=== PATIENT | male | born 1945 | race Caucasian/White ===

== ENCOUNTER 2017-10-20 12:17 | Inpatient (IN) | payer OTHER, MEDICARE, MEDICAID ==
[~2017-10-20] VITALS: Ht 175.3 cm; Wt 49.0 kg
[2017-10-20] VITALS (11 sets, daily range): BP systolic 116–165; BP diastolic 62–90; PULSE 85–106; RESP 16–25; TEMP 99.2–101.2; O2SAT 94–97
[2017-10-20] MEDS ORDERED: THIAMINE INJ 100 MG in SODIUM CHLORIDE 0.9% INJ 100 ML IV ONE (12:30)
[2017-10-20 13:24] LABS: HEMATOCRIT 38.1 % (39.0-51.0); HEMOGLOBIN 13.2 GM/DL (13.0-17.0); MEAN CELL VOLUME 105.2 FL (80.0-100.0); MEAN CORPUSCULAR HEMOGLOBIN 36.4 PG (27.0-34.0); MEAN CORPUSCULAR HGB CONC 34.6 % (32.0-36.0); MEAN PLATELET VOLUME 6.9 FL (7.0-11.0); PLATELET COUNT 253 TH/MM3 (150-450); RED BLOOD COUNT 3.62 MIL/MM3 (4.50-5.90); RED CELL DISTRIBUTION WIDTH 16.1 % (11.6-17.2); WHITE BLOOD COUNT 6.7 TH/MM3 (4.0-11.0)
[2017-10-20 13:29] LABS: CHLORIDE 98 MEQ/L (98-107); SODIUM (NA) 137 MEQ/L (136-145)
[2017-10-20 13:33] LABS: ALBUMIN 3.5 GM/DL (3.4-5.0); BICARBONATE 26.4 MEQ/L (21.0-32.0); BLOOD UREA NITROGEN 10 MG/DL (7-18); GLUCOSE,RANDOM 110 MG/DL (74-106)
[2017-10-20 13:36] LABS: ALT (GPT) 31 U/L (12-78); AST (GOT) 85 U/L (15-37); CREATININE 0.74 MG/DL (0.60-1.30); GLOMERULAR FILTRATION RATE 103 ML/MIN (>89)
[2017-10-20 13:37] LABS: TOTAL BILIRUBIN ADULT 1.1 MG/DL (0.2-1.0); TOTAL PROTEIN 7.4 GM/DL (6.4-8.2)
[2017-10-20 13:39] LABS: ALKALINE PHOSPHATASE 106 U/L (45-117)
[2017-10-20 13:40] LABS: BANDS 11 % (0-6); LYMPHOCYTES 9 % (9-44); MONOCYTES 8 % (0-8); NEUTROPHIL # MANUAL DIFF 5.6 TH/MM3 (1.8-7.7); POLYS (SEG NEUTROPHILS) 72 % (16-70)
--- NOTE | 2017-10-20 13:45 | RADRPT ---
EXAM DATE: 10/20/2017 1:42 PM EDT AGE/SEX: 72 years / Male INDICATIONS: Fever. CLINICAL DATA: This is the patient's initial encounter. Patient reports that signs and symptoms have been present for 1 day and indicates a pain score of 0/10. MEDICAL/SURGICAL HISTORY: None. None. COMPARISON: No prior [place] exams available for comparison. FINDINGS: There is minimal streaky parenchymal opacity at the left lung base. Right lung is grossly clear. Card iac contours are satisfactory accounting for rotation. No significant effusion is suspected. CONCLUSION: Minimal left base parenchymal opacity. Electronically signed by: Alex Varghese MD 10/20/2017 1:43 PM EDT
--- NOTE | 2017-10-20 13:55 | PD ---
HPI Chief Complaint: GI Complaint Time Seen by Provider: 12:27 Travel History International Travel<30 days: No Contact w/Intl Traveler<30days: No Traveled to known affect area: No History of Present Illness HPI This 72-year-old male is brought by paramedics. This gentleman apparently has a history of alcohol abuse. Family told the paramedics that he was not acting himself. He apparently has a history of dementia though he seems more confused than usual. He has a history of seizures. In the past he has been on Dilantin. At this time we are unable to ascertain whether he has been taking any medication. We are not aware of any recent seizure. The patient is not able to provide any useful information. 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 PFSH Past Medical History Diminished Hearing: No Tetanus Vaccination: Unknown ?: Not Social History Alcohol Use: Yes Tobacco Use: No (pt states no) Substance Use: No Allergies-Medications (Allergen,Severity, Reaction): Coded Allergies: No Allergy Information Available (Unverified , 10/20/17) Reported Meds & Prescriptions Reported Meds & Active Scripts Active Active Prescriptions or Reported Medications Unobtainable Review of Systems ROS Limitations: Altered Mental Status Physical Exam Narrative Temp is 101.5 GENERAL: Thin male he is cooperative though he is quite confused. SKIN: Focused skin assessment warm/dry. HEAD: Atraumatic. Normocephalic. EYES: Pupils equal and round. No scleral icterus. No injection or drainage. ENT: No nasal bleeding or discharge. Mucous membranes pink and moist. NECK: Trachea midline. No JVD. CARDIOVASCULAR: Regular rate and rhythm. No murmur appreciated. RESPIRATORY: No accessory muscle use. Clear to auscultation. Breath sounds equal bilaterally. GASTROINTESTINAL: Abdomen soft, liver is enlarged and firm hepatic and splenic margins not palpable. MUSCULOSKELETAL: No obvious deformities. No clubbing. No cyanosis. No edema. NEUROLOGICAL: Awake and alert. No obvious cranial nerve deficits. Motor grossly within normal limits. Limited speech, he repeats that he is fine PSYCHIATRIC: Patient appears quite confused though he is cooperative at this time Data Data Last Documented VS Vital Signs Date Time Temp Pulse Resp B/P (MAP) Pulse Ox O2 Delivery O2 Flow Rate FiO2 10/20/17 13:45 96 16 146/75 (98) 95 Room Air 10/20/17 12:51 101.2 Orders Orders Complete Blood Count With Diff (10/20/17 12:28) Comprehensive Metabolic Panel (10/20/17 12:28) Ammonia (10/20/17 12:28) Alcohol (Ethanol) (10/20/17 12:28) Thiamine Inj (Thiamine Inj) (10/20/17 12:30) Blood Culture (10/20/17 13:11) Urinalysis - C+S If Indicated (10/20/17 13:11) Chest, Single Ap (10/20/17 13:11) Lactic Acid Sepsis Protocol (10/20/17 13:11) Ct Brain W/O Iv Contrast(Rout) (10/20/17 13:13) Phenytoin (Dilantin) (10/20/17 13:18) Prothrombin Time / Inr (Pt) (10/20/17 13:34) Act Partial Throm Time (Ptt) (10/20/17 13:34) Ceftriaxone Inj (Rocephin Inj) (10/20/17 14:00) Acetaminophen (Tylenol) (10/20/17 14:15) Admit Order (Ed Use Only) (10/20/17 14:12) Labs Laboratory Tests Test 10/20/17 13:00 10/20/17 13:25 10/20/17 14:00 10/20/17 14:12 White Blood Count 6.7 TH/MM3 Red Blood Count 3.62 MIL/MM3 Hemoglobin 13.2 GM/DL Hematocrit 38.1 % Mean Corpuscular Volume 105.2 FL Mean Corpuscular Hemoglobin 36.4 PG Mean Corpuscular Hemoglobin Concent 34.6 % Red Cell Distribution Width 16.1 % Platelet Count 253 TH/MM3 Mean Platelet Volume 6.9 FL CBC Comment AUTO DIFF Differential Total Cells Counted 100 Neutrophils % (Manual) 72 % Band Neutrophils % 11 % Lymphocytes % 9 % Monocytes % 8 % Neutrophils # (Manual) 5.6 TH/MM3 Differential Comment FINAL DIFF MANUAL Platelet Estimate NORMAL Platelet Morphology Comment NORMAL Red Cell Morphology Comment NORMAL Blood Urea Nitrogen 10 MG/DL Creatinine 0.74 MG/DL Random Glucose 110 MG/DL Total Protein 7.4 GM/DL Albumin 3.5 GM/DL Calcium Level 9.0 MG/DL Alkaline Phosphatase 106 U/L Aspartate Amino Transf (AST/SGOT) 85 U/L Alanine Aminotransferase (ALT/SGPT) 31 U/L Total Bilirubin 1.1 MG/DL Sodium Level 137 MEQ/L Potassium Level 5.1 MEQ/L Chloride Level 98 MEQ/L Carbon Dioxide Level 26.4 MEQ/L Anion Gap 13 MEQ/L Estimat Glomerular Filtration Rate 103 ML/MIN Phenytoin (Dilantin) Level LESS THAN 0.4 MCG/ML Ethyl Alcohol Level 111 MG/DL Lactic Acid Level 6.8 mmol/L Ammonia 36 MCMOL/L Prothrombin Time 11.3 SEC Prothromb Time International Ratio 1.1 RATIO Activated Partial Thromboplast Time 19.3 SEC Urine Collection Type CLEAN CATCH Urine Color YELLOW Urine Turbidity CLEAR Urine pH 5.5 Urine Specific [place] 1.025 Urine Protein NEG mg/dL Urine Glucose (UA) NEG mg/dL Urine Ketones 40 mg/dL Urine Occult Blood SMALL Urine Nitrite NEG Urine Bilirubin NEG Urine Urobilinogen 0.2 MG/DL Urine Leukocyte Esterase NEG Urine RBC 0-3 /hpf Urine WBC 0-2 /hpf Urine Squamous Epithelial Cells 0-5 /hpf Urine Hyaline Casts 10-14 /lpf Microscopic Urinalysis Comment CULT NOT INDICATED Urine Collection Time 14:12 [facility] Medical Decision Making Medical Screen Exam Complete: Yes Emergency Medical Condition: Yes Medical Record Reviewed: Yes Differential Diagnosis Differential includes UTI, pneumonia, Narrative Course X-ray shows streaky parenchymal opacity at the left lung base. White count is 6.7 with 72 polys and 11% bands. CT scan of the brain shows evidence of previous left temporal craniotomy. There is encephalomalacia in the left temporal region the brain is otherwise symmetric and unremarkable. Lactate has come back at 6.8. Patient has been given additional fluid. He has not been hypotensive here. His blood alcohol is 111. He does have a history of seizures but we do not have a history of a seizure today. Patient has been given Rocephin. He will be admitted Diagnosis Primary Impression: Pneumonia Admitting Information Admitting Physician Requests: Admit Scripts Unable to Obtain Active Prescriptions or Reported Meds Rosales Degroot MD October 20, 2017 13:55
--- NOTE | 2017-10-20 13:56 | RADRPT ---
EXAM DATE: 10/20/2017 1:47 PM EDT AGE/SEX: 72 years / Male INDICATIONS: Altered mental status. CLINICAL DATA: This is the patient's initial encounter. Patient reports that signs and symptoms have been present for 1 day and indicates a pain score of 0/10. MEDICAL/SURGICAL HISTORY: None. Craniotomy. RADIATION DOSE: 51.29 CTDI (mGy) COMPARISON: No prior [place] exams available for comparison. TECHNIQUE: CT of the head without contrast. Using automated exposure control and adjustment of the mA and/or kV according to patient size, radiation dose was kept as low as reasonably achievable to ob tain optimal diagnostic quality images. FINDINGS: There is been previous left temporal craniotomy. There is encephalomalacia in the left temporal regio n. The brain is elsewhere symmetric and unremarkable. No evidence of mass or hemorrhage. There is not morgan to suggest acute infarction. Extracranial structures are otherwise benign.. CONCLUSION: No acute intracranial process Electronically signed by: Alex Varghese MD 10/20/2017 1:54 PM EDT
[2017-10-20] MEDS ORDERED: cefTRIAXone INJ 2,000 MG in SODIUM CHLORIDE 0.9% INJ 100 ML IV ONE (14:00)
[2017-10-20] MEDS ORDERED: ACETAMINOPHEN 325 MG TAB PO ONE (14:15)
[2017-10-20 14:17] LABS: LACTIC ACID SEPSIS PROTOCOL 6.8 mmol/L (0.4-2.0)
[2017-10-20 14:19] LABS: BILIRUBIN, URINE NEG (NEG); BLOOD, URINE SMALL (NEG); GLUCOSE,URINE NEG (NEG); KETONE, URINE 40 mg/dL (NEG); NITRITE,URINE NEG (NEG); PH, URINE 5.5 (5.0-8.5); URINE COLOR YELLOW (YELLW/STRAW); URINE LEUKOCYTE ESTERASE NEG (NEG)
[2017-10-20 14:28] LABS: INTERNATIONAL NORMALIZED RATIO 1.1 RATIO; PROTHROMBIN TIME - PATIENT 11.3 SEC (9.8-11.6)
[2017-10-20 14:29] LABS: RBC, URINE 0-3 /hpf (0-3); SQUAMOUS EPITHELIAL CELL URINE 0-5 /hpf (0-5); WBC, URINE 0-2 /hpf (0-5)
[2017-10-20] MEDS ORDERED: SODIUM CHLOR 0.9% 1000 ML INJ 1,000 ML IV ONE (14:30)
--- NOTE | 2017-10-20 14:42 | HHI.HP ---
[facility] Primary Care Physician Unknown Admission Diagnosis PNEUMONIA Diagnoses: (1) Community acquired bacterial pneumonia (2) Alcohol intoxication (3) Alcohol abuse (4) Severe sepsis (5) Acute metabolic encephalopathy (6) Toxic metabolic encephalopathy (7) Lactic acidosis Chief Complaint: AMS Travel History International Travel<30 Days: No Contact w/Intl Traveler <30 Da: No Traveled to Known Affected Are: No Sepsis Criteria SIRS Criteria (2 or more): Temp > 100.9 or < 96.8, Heart rate over 90, WBC > 03211, < 4000 or > 10% bands Severe Sepsis (+one): Lactate >2 Criteria Outcome: Meets severe sepsis criteria History of Present Illness 72 years old brought to the ED for evaluation of AMS, although during my exam patient appears alert however he was unable to provide any history due to confusion and agitation, therefore the history is obtained through chart review below: "This 72-year-old male is brought by paramedics. This gentleman apparently has a history of alcohol abuse. Family told the paramedics that he was not acting himself. He apparently has a history of dementia though he seems more confused than usual. He has a history of seizures. In the past he has been on Dilantin. At this time we are unable to ascertain whether he has been taking any medication. We are not aware of any recent seizure. The patient is not able to provide any useful information. 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." Review of Systems ROS Limitations: Intoxication, Poor Historian Past Family Social History Past Medical History Unable to obtain Past Surgical History Unable to obtain Reported Medications Unable to obtain Allergies: Coded Allergies: No Allergy Information Available (Unverified , 10/20/17) Family History Unable to obtain Social History Alcohol Use: Yes Tobacco Use: No (pt states no) Substance Use: No Physical Exam Vital Signs Vital Signs Date Time Temp Pulse Resp B/P (MAP) Pulse Ox O2 Delivery O2 Flow Rate FiO2 10/20/17 13:45 96 16 146/75 (98) 95 Room Air 10/20/17 12:51 101.2 92 16 116/71 (86) 95 Room Air 10/20/17 12:38 101.1 91 16 126/73 (90) 95 Physical Exam GENERAL: This is a well-nourished, well-developed patient, however confused and attempted to climb out of the bed. SKIN: No rashes, ecchymoses or lesions. Cool and dry. HEAD: Atraumatic. Normocephalic. No temporal or scalp tenderness. EYES: Pupils equal round and reactive. Extraocular motions intact. No scleral icterus. No injection or drainage. ENT: Nose without bleeding, purulent drainage or septal hematoma. Throat without erythema, tonsillar hypertrophy or exudate. Uvula midline. Airway patent. NECK: Trachea midline. No JVD or lymphadenopathy. Supple, nontender, no meningeal signs. CARDIOVASCULAR: Regular rate and rhythm without murmurs, gallops, or rubs. RESPIRATORY: Clear to auscultation. Breath sounds equal bilaterally. No wheezes , rales, or rhonchi. GASTROINTESTINAL: Abdomen soft, non-tender, nondistended. No hepato-splenomegaly , or palpable masses. No guarding. MUSCULOSKELETAL: Extremities without clubbing, cyanosis, or edema. No joint tenderness, effusion, or edema noted. No calf tenderness. Negative Homans sign bilaterally. NEUROLOGICAL: Awake and alert. Cranial nerves II through XII intact. Motor and sensory grossly within normal limits. Five out of 5 muscle strength in all muscle groups. Laboratory Laboratory Tests Test 10/20/17 13:00 10/20/17 13:25 10/20/17 14:00 10/20/17 14:12 White Blood Count 6.7 Red Blood Count 3.62 Hemoglobin 13.2 Hematocrit 38.1 Mean Corpuscular Volume 105.2 Mean Corpuscular Hemoglobin 36.4 Mean Corpuscular Hemoglobin Concent 34.6 Red Cell Distribution Width 16.1 Platelet Count 253 Mean Platelet Volume 6.9 CBC Comment AUTO DIFF Differential Total Cells Counted 100 Neutrophils % (Manual) 72 Band Neutrophils % 11 Lymphocytes % 9 Monocytes % 8 Neutrophils # (Manual) 5.6 Differential Comment FINAL DIFF MANUAL Platelet Estimate NORMAL Platelet Morphology Comment NORMAL Red Cell Morphology Comment NORMAL Blood Urea Nitrogen 10 Creatinine 0.74 Random Glucose 110 Total Protein 7.4 Albumin 3.5 Calcium Level 9.0 Alkaline Phosphatase 106 Aspartate Amino Transf (AST/SGOT) 85 Alanine Aminotransferase (ALT/SGPT) 31 Total Bilirubin 1.1 Sodium Level 137 Potassium Level 5.1 Chloride Level 98 Carbon Dioxide Level 26.4 Anion Gap 13 Estimat Glomerular Filtration Rate 103 Phenytoin (Dilantin) Level LESS THAN 0.4 Ethyl Alcohol Level 111 Lactic Acid Level 6.8 Ammonia 36 Prothrombin Time 11.3 Prothromb Time International Ratio 1.1 Activated Partial Thromboplast Time 19.3 Urine Collection Type CLEAN CATCH Urine Color YELLOW Urine Turbidity CLEAR Urine pH 5.5 Urine Specific [place] 1.025 Urine Protein NEG Urine Glucose (UA) NEG Urine Ketones 40 Urine Occult Blood SMALL Urine Nitrite NEG Urine Bilirubin NEG Urine Urobilinogen 0.2 Urine Leukocyte Esterase NEG Urine RBC 0-3 Urine WBC 0-2 Urine Squamous Epithelial Cells 0-5 Urine Hyaline Casts 10-14 Microscopic Urinalysis Comment CULT NOT INDICATED Urine Collection Time 14:12 Date/Time Source Procedure Growth Status 10/20/17 13:35 Blood Peripheral Aerobic Blood Culture Pending Received 10/20/17 13:35 Blood Peripheral Anaerobic Blood Culture Pending Received Result Diagram: 10/20/17 1300 10/20/17 1300 Imaging Last Impressions Head CT 10/20/17 1313 Signed Impressions: CONCLUSION: No acute intracranial process Chest X-Ray 10/20/17 1311 Signed Impressions: CONCLUSION: Minimal left base parenchymal opacity. Caprini VTE Risk Assessment Caprini VTE Risk Assessment: Mod/High Risk (score >= 2) Caprini Risk Assessment Model Point Value = 1 Point Value = 2 Point Value = 3 Point Value = 5 Age 41-60 Minor surgery BMI > 25 kg/m2 Swollen legs Varicose veins or History of unexplained or recurrent spontaneous Oral contraceptives or hormone replacement Sepsis (< 1 month) Serious lung disease, including pneumonia (< 1 month) Abnormal pulmonary function Acute myocardial infarction Congestive heart failure (< 1 month) History of inflammatory bowel disease Medical patient at bed rest Age 61-74 Arthroscopic surgery Major open surgery (> 45 min) Laparoscopic surgery (> 45 min) Malignancy Confined to bed (> 72 hours) Immobilizing plaster cast Central venous access Age >= 75 History of VTE Family history of VTE Factor V Leiden Prothrombin [id number] Lupus anticoagulant Anticardiolipin antibodies Elevated serum homocysteine Heparin-induced thrombocytopenia Other congenital or acquired thrombophilia Stroke (< 1 month) Elective arthroplasty Hip, pelvis, or leg fracture Acute spinal cord injury (< 1 month) Prophylaxis Regimen Total Risk Factor Score Risk Level Prophylaxis Regimen 0-1 Low Early ambulation 2 Moderate Order ONE of the following: *Sequential Compression Device (SCD) *Heparin 5000 units SQ BID 3-4 Higher Order ONE of the following medications: *Heparin 5000 units SQ TID *Enoxaparin/Lovenox 40 mg SQ daily (WT < 150 kg, CrCl > 30 mL/min) *Enoxaparin/Lovenox 30 mg SQ daily (WT < 150 kg, CrCl > 10-29 mL/min) *Enoxaparin/Lovenox 30 mg SQ BID (WT < 150 kg, CrCl > 30 mL/min) AND/OR *Sequential Compression Device (SCD) 5 or more Highest Order ONE of the following medications: *Heparin 5000 units SQ TID (Preferred with Epidurals) *Enoxaparin/Lovenox 40 mg SQ daily (WT < 150 kg, CrCl > 30 mL/min) *Enoxaparin/Lovenox 30 mg SQ daily (WT < 150 kg, CrCl > 10-29 mL/min) *Enoxaparin/Lovenox 30 mg SQ BID (WT < 150 kg, CrCl > 30 mL/min) AND *Sequential Compression Device (SCD) Assessment and Plan Assessment and Plan 72-year-old man with Severe sepsis: Temp > 100.9 or < 96.8, Heart rate over 90, WBC > 62622, < 4000 or > 10% bands; Lactate >2; due to aspiration pneumonia Currently on Zosyn and vancomycin pending culture report Aspiration pneumonia Chest x-ray noted and reviewed by me with minimal left base parenchymal opacity Continue with Zosyn pending culture report Check sputum culture, Legionella and pneumococcal urinary antigens DuoNeb as needed Maintain oxygen saturation above 92% Metabolic encephalopathy Head CT noted and reviewed by me without any intracranial abnormality Check EEG, ammonia level Treat lactic acidosis Lactic acidosis From above Continue with IV fluid hydration, IV antibiotics Monitor lactic acid History of seizure disorder Check EEG Ativan as needed Alcohol abuse/intoxication Monitor for withdrawal signs and symptoms That CIWA protocol, rally pack, Librium as needed and consider Precedex Physician Certification 2 Midnight Certification Type: Admission for Inpatient Services Order for Inpatient Services The services are ordered in accordance with Medicare regulations or non- Medicare payer requirements, as applicable. In the case of services not specified as inpatient-only, they are appropriately provided as inpatient services in accordance with the 2-midnight benchmark. Estimated LOS (days): 2 days is the estimated time the patient will need to remain in the hospital, assuming treatment plan goals are met and no additional complications. Post-Hospital Plan: Not yet determined Je Castillo MD October 20, 2017 14:42
[2017-10-20] MEDS ORDERED: RESP: ALBUTEROL 2.5 MG/IPRATROPIUM 0.5 MG NEB (PRN) NEB ×2 (14:45→16:15)
[2017-10-20] MEDS ORDERED: ACETAMINOPHEN 325 MG TAB PO PRN ×2 (14:45)
[2017-10-20] MEDS ORDERED: FLUMAZENIL 0.5 MG/5 ML VIAL IV PUSH PRN (14:45)
[2017-10-20] MEDS ORDERED: LORazepam 1 MG TAB PO PRN (14:45)
[2017-10-20] MEDS ORDERED: ONDANSETRON HCL 4 MG/2 ML VIAL IVP PRN (14:45)
[2017-10-20] MEDS ORDERED: MAGNESIUM HYDROXIDE SUSP 30 ML CUP PO PRN (14:45)
[2017-10-20] MEDS ORDERED: LORazepam 2 MG TAB PO PRN (14:45)
[2017-10-20] MEDS ORDERED: NALOXONE HCL 0.4 MG/ML AMP IV PUSH PRN (14:45)
[2017-10-20] MEDS ORDERED: LORazepam 2 MG/ML VIAL IV PUSH PRN ×3 (14:45)
[2017-10-20] MEDS: SODIUM CHLOR 0.9% 1000 ML INJ 1,000 ML IV SCH (16:17)
[2017-10-20] MEDS: VANCOMYCIN INJ 1,250 MG in SODIUM CHLOR 0.9% 250 ML INJ 250 ML IV SCH (16:39)
[2017-10-20] MEDS: LORazepam 2 MG/ML VIAL IV PUSH PRN (21:23)
[2017-10-20] MEDS: SODIUM CHLORIDE 0.9% FLUSH 10 ML FLUSH IV FLUSH SCH (21:23)
[2017-10-20] MEDS ORDERED: HALOPERIDOL LACTATE 5 MG/ML AMP IM ONE (22:00)
[2017-10-20] MEDS: PIPERACIL-TAZO 3.375 GM PREMIX 50 ML IV SCH (22:10)
[2017-10-21] VITALS (20 sets, daily range): BP systolic 113–138; BP diastolic 69–92; PULSE 64–114; RESP 15–41; TEMP 97.5–98.7; O2SAT 93–99
[2017-10-21] MEDS: SODIUM CHLORIDE 0.9% FLUSH 10 ML FLUSH IV FLUSH PRN ×3 (01:54→06:10)
[2017-10-21] MEDS: LORazepam 2 MG/ML VIAL IV PUSH PRN ×6 (01:54→23:57)
[2017-10-21] MEDS: SODIUM CHLOR 0.9% 1000 ML INJ 1,000 ML IV SCH ×3 (03:52→18:07)
[2017-10-21] MEDS: PIPERACIL-TAZO 3.375 GM PREMIX 50 ML IV SCH ×3 (04:47→19:18)
[2017-10-21 06:05] LABS: AUTOMATED NEUTROPHIL # 3.6 TH/MM3 (1.8-7.7); BASOPHIL # 0.1 TH/MM3 (0-0.2); BASOPHIL % 2.4 % (0.0-2.0); EOSINOPHIL % 0.1 % (0.0-4.0); HEMATOCRIT 35.6 % (39.0-51.0); HEMOGLOBIN 11.9 GM/DL (13.0-17.0); LYMPH % 21.4 % (9.0-44.0); LYMPHOCYTE # 1.3 TH/MM3 (1.0-4.8); MEAN CELL VOLUME 106.8 FL (80.0-100.0); MEAN CORPUSCULAR HEMOGLOBIN 35.7 PG (27.0-34.0); MEAN CORPUSCULAR HGB CONC 33.4 % (32.0-36.0); MEAN PLATELET VOLUME 6.4 FL (7.0-11.0); MONO % 15.7 % (0.0-8.0); MONOCYTE # 0.9 TH/MM3 (0-0.9); NEUT % 60.4 % (16.0-70.0); PLATELET COUNT 179 TH/MM3 (150-450); RED BLOOD COUNT 3.33 MIL/MM3 (4.50-5.90); RED CELL DISTRIBUTION WIDTH 16.2 % (11.6-17.2); WHITE BLOOD COUNT 5.9 TH/MM3 (4.0-11.0)
[2017-10-21 06:15] LABS: CHLORIDE 103 MEQ/L (98-107); SODIUM (NA) 141 MEQ/L (136-145)
[2017-10-21 06:19] LABS: CALCIUM 8.4 MG/DL (8.5-10.1)
[2017-10-21 07:11] LABS: ALBUMIN 2.7 GM/DL (3.4-5.0); ALKALINE PHOSPHATASE 70 U/L (45-117); ALT (GPT) 22 U/L (12-78); AST (GOT) 63 U/L (15-37); BICARBONATE 25.7 MEQ/L (21.0-32.0); BLOOD UREA NITROGEN 6 MG/DL (7-18); CREATININE 0.84 MG/DL (0.60-1.30); GLOMERULAR FILTRATION RATE 89 ML/MIN (>89); GLUCOSE,RANDOM 108 MG/DL (74-106); TOTAL BILIRUBIN ADULT 2.1 MG/DL (0.2-1.0); TOTAL PROTEIN 6.1 GM/DL (6.4-8.2)
[2017-10-21] MEDS: SODIUM CHLORIDE 0.9% FLUSH 10 ML FLUSH IV FLUSH SCH ×2 (09:00→19:18)
--- NOTE | 2017-10-21 10:06 | HHI.PR ---
Subjective Remarks Follow-up severe sepsis/lactic acidosis/aspiration pneumonia/toxic and metabolic encephalopathy October 21, 2017-patient seen and examined, currently stable. Patient resting comfortably and able to answer my questions. Afebrile and vitals stable Objective Vitals Vital Signs Date Time Temp Pulse Resp B/P (MAP) Pulse Ox O2 Delivery O2 Flow Rate FiO2 10/21/17 08:00 98.7 114/69 (84) 10/21/17 06:00 83 10/21/17 04:00 98.0 87 15 136/76 (96) 98 10/21/17 04:00 84 10/21/17 02:00 104 10/21/17 00:00 98.2 87 26 122/72 (89) 99 10/21/17 00:00 73 10/20/17 22:00 96 10/20/17 20:32 99 10/20/17 20:30 10/20/17 20:22 99.2 106 25 154/90 (111) 97 10/20/17 19:21 85 16 138/79 (98) 97 Room Air 10/20/17 18:08 98 16 165/86 (112) 95 Room Air 10/20/17 17:14 87 16 152/62 (92) 96 Room Air 10/20/17 16:07 99.5 93 16 137/82 (100) 95 Room Air 10/20/17 14:54 103 22 142/86 (104) 94 Room Air 10/20/17 13:45 96 16 146/75 (98) 95 Room Air 10/20/17 12:51 101.2 92 16 116/71 (86) 95 Room Air 10/20/17 12:38 101.1 91 16 126/73 (90) 95 I/O 10/20/17 10/20/17 10/20/17 10/21/17 10/21/17 10/21/17 07:00 15:00 23:00 07:00 15:00 23:00 Intake Total 100 ml 1000 ml 120 ml Output Total 500 ml Balance 100 ml 500 ml 120 ml Intake Oral 0 ml 120 ml IV Total 100 ml 1000 ml Output Urine Total 500 ml # Voids 3 # Bowel Movements 0 Result Diagram: 10/21/17 0552 10/21/17 0552 Imaging Last Impressions Head CT 10/20/17 1313 Signed Impressions: CONCLUSION: No acute intracranial process Chest X-Ray 10/20/17 1311 Signed Impressions: CONCLUSION: Minimal left base parenchymal opacity. Objective Remarks GENERAL: NAD we will restrain to left upper extremity SKIN: Warm and dry. HEAD: Normocephalic. EYES: No scleral icterus. No injection or drainage. NECK: Supple, trachea midline. No JVD or lymphadenopathy. CARDIOVASCULAR: Regular rate and rhythm without murmurs, gallops, or rubs. RESPIRATORY: Breath sounds equal bilaterally. No accessory muscle use. GASTROINTESTINAL: Abdomen soft, non-tender, nondistended. MUSCULOSKELETAL: No cyanosis, or edema. BACK: Nontender without obvious deformity. No CVA tenderness. A/P Problem List: (1) Community acquired bacterial pneumonia ICD Code: J15.9 - Unspecified bacterial pneumonia (2) Alcohol intoxication ICD Code: F10.929 - Alcohol use, unspecified with intoxication, unspecified (3) Alcohol abuse ICD Code: F10.10 - Alcohol abuse, uncomplicated (4) Severe sepsis ICD Code: A41.9 - Sepsis, unspecified organism; R65.20 - Severe sepsis without septic shock (5) Acute metabolic encephalopathy ICD Code: G93.41 - Metabolic encephalopathy (6) Toxic metabolic encephalopathy ICD Code: G92 - Toxic encephalopathy (7) Lactic acidosis ICD Code: E87.2 - Acidosis Assessment and Plan 72-year-old man with Severe sepsis: Temp > 100.9 or < 96.8, Heart rate over 90, WBC > 95364, < 4000 or > 10% bands; Lactate >2; due to aspiration pneumonia Continue with Zosyn and vancomycin pending culture report Aspiration pneumonia Chest x-ray with minimal left base parenchymal opacity Continue with Zosyn pending culture report Sputum culture pending, Legionella and pneumococcal urinary antigens negative DuoNeb as needed Maintain oxygen saturation above 92% Metabolic encephalopathy Head CT noted and reviewed by me without any intracranial abnormality EEG pending Treat lactic acidosis Lactic acidosis From above Continue with IV fluid hydration, IV antibiotics Monitor lactic acid History of seizure disorder? EEG pending Ativan as needed Alcohol abuse/intoxication Monitor for withdrawal signs and symptoms Continue with CIWA protocol, rally pack, Librium as needed Je Castillo MD October 21, 2017 10:06
[2017-10-21] MEDS: THIAMINE INJ 100 MG in SODIUM CHLORIDE 0.9% INJ 100 ML IV SCH (10:11)
[2017-10-21] MEDS: VANCOMYCIN INJ 1,250 MG in SODIUM CHLOR 0.9% 250 ML INJ 250 ML IV SCH (14:39)
[2017-10-21 16:15] LABS: LACTIC ACID SEPSIS PROTOCOL 3.2 mmol/L (0.4-2.0)
[2017-10-22] VITALS (12 sets, daily range): BP systolic 104–142; BP diastolic 67–88; PULSE 62–102; RESP 18–52; TEMP 97–98.9; O2SAT 99
[2017-10-22] MEDS: LORazepam 2 MG/ML VIAL IV PUSH PRN ×2 (01:10→03:02)
[2017-10-22] MEDS: PIPERACIL-TAZO 3.375 GM PREMIX 50 ML IV SCH (04:13)
[2017-10-22 06:02] LABS: AUTOMATED NEUTROPHIL # 3.1 TH/MM3 (1.8-7.7); BASOPHIL # 0.2 TH/MM3 (0-0.2); BASOPHIL % 3.6 % (0.0-2.0); EOSINOPHIL # 0.1 TH/MM3 (0-0.4); EOSINOPHIL % 1.4 % (0.0-4.0); HEMATOCRIT 35.2 % (39.0-51.0); LYMPH % 11.5 % (9.0-44.0); LYMPHOCYTE # 0.5 TH/MM3 (1.0-4.8); MEAN CELL VOLUME 106.5 FL (80.0-100.0); MEAN CORPUSCULAR HEMOGLOBIN 36.4 PG (27.0-34.0); MEAN CORPUSCULAR HGB CONC 34.2 % (32.0-36.0); MEAN PLATELET VOLUME 6.4 FL (7.0-11.0); MONO % 9.8 % (0.0-8.0); MONOCYTE # 0.4 TH/MM3 (0-0.9); NEUT % 73.7 % (16.0-70.0); PLATELET COUNT 198 TH/MM3 (150-450); RED BLOOD COUNT 3.31 MIL/MM3 (4.50-5.90); RED CELL DISTRIBUTION WIDTH 15.8 % (11.6-17.2); WHITE BLOOD COUNT 4.3 TH/MM3 (4.0-11.0)
[2017-10-22 06:25] LABS: ALBUMIN 2.8 GM/DL (3.4-5.0); ALKALINE PHOSPHATASE 65 U/L (45-117); ALT (GPT) 23 U/L (12-78); AST (GOT) 64 U/L (15-37); BICARBONATE 29.6 MEQ/L (21.0-32.0); BLOOD UREA NITROGEN 6 MG/DL (7-18); CALCIUM 8.6 MG/DL (8.5-10.1); CHLORIDE 106 MEQ/L (98-107); CREATININE 0.67 MG/DL (0.60-1.30); GLOMERULAR FILTRATION RATE 116 ML/MIN (>89); GLUCOSE,RANDOM 121 MG/DL (74-106); SODIUM (NA) 142 MEQ/L (136-145); TOTAL BILIRUBIN ADULT 2.1 MG/DL (0.2-1.0); TOTAL PROTEIN 6.2 GM/DL (6.4-8.2)
[2017-10-22] MEDS: SODIUM CHLOR 0.9% 1000 ML INJ 1,000 ML IV SCH (06:42)
[2017-10-22] MEDS: THIAMINE INJ 100 MG in SODIUM CHLORIDE 0.9% INJ 100 ML IV SCH (08:27)
[2017-10-22] MEDS: SODIUM CHLORIDE 0.9% FLUSH 10 ML FLUSH IV FLUSH SCH (08:30)
--- NOTE | 2017-10-22 10:12 | MG ---
cc: Carlos Coppola MD [facility] [phone] INDICATION: Confusion, alcohol abuse, Thiamine, Ativan. DESCRIPTION: Appears to be in stage II sleep with some symmetric sleep spindles. Diffuse alpha and beta rhythms are noted. I do not see any major hemisphere asymmetry. Hyperventilation is not performed. Some diffuse theta slowing is seen occasionally. Some wheezing is noted and coughing by the tech. He does not quite reach a normal stage II sleep electroencephalogram. At Epoch 113, had a semirhythmic theta slowing, appears to be sleep activity. Photic stimulation is performed without significant posterior driving. IMPRESSION: Essentially unremarkable primarily stage II sleep electroencephalogram. No evidence for focal or diffuse abnormality. Carlos Coppola MD DJM/TL , 09:46 AM , 10:11 AM
--- NOTE | 2017-10-22 10:33 | HHI.PR ---
Subjective Remarks Follow-up severe sepsis/lactic acidosis/aspiration pneumonia/toxic and metabolic encephalopathy October 21, 2017-patient seen and examined, currently stable. Patient resting comfortably and able to answer my questions. Afebrile and vitals stable October 22, 2017-patient seen and examined, stable and no acute event overnight. Objective Vitals Vital Signs Date Time Temp Pulse Resp B/P (MAP) Pulse Ox O2 Delivery O2 Flow Rate FiO2 10/22/17 08:32 64 18 125/78 (94) 99 10/22/17 08:00 97.9 10/22/17 08:00 62 10/22/17 08:00 62 50 99 10/22/17 07:38 62 52 104/67 (79) 10/22/17 04:00 78 10/22/17 03:57 97.0 94 24 142/88 (106) 10/22/17 00:00 94 10/21/17 23:48 97.5 98 27 134/76 (95) 97 10/21/17 20:33 97.9 78 19 126/76 (93) 93 10/21/17 20:00 88 10/21/17 18:00 96 10/21/17 17:14 78 25 138/92 (107) 10/21/17 17:00 68 10/21/17 16:00 68 10/21/17 16:00 97.8 129/80 (96) 10/21/17 15:00 72 10/21/17 14:00 78 10/21/17 12:33 80 25 136/81 (99) 10/21/17 12:00 98.7 114 114/69 (84) 10/21/17 12:00 64 I/O 10/21/17 10/21/17 10/21/17 10/22/17 10/22/17 10/22/17 07:00 15:00 23:00 07:00 15:00 23:00 Intake Total 1000 ml 271 ml 1482.5 ml 600 ml Output Total 500 ml 700 ml 1400 ml Balance 500 ml 271 ml 782.5 ml -800 ml Intake Oral 0 ml 120 ml 120 ml IV Total 1000 ml 151 ml 1362.5 ml 600 ml Output Urine Total 500 ml 700 ml 1400 ml # Voids 3 # Bowel Movements 0 1 Result Diagram: 10/22/17 0551 10/22/17 0551 Imaging Last Impressions Head CT 10/20/17 1313 Signed Impressions: CONCLUSION: No acute intracranial process Chest X-Ray 10/20/17 1311 Signed Impressions: CONCLUSION: Minimal left base parenchymal opacity. Objective Remarks GENERAL: NAD SKIN: Warm and dry. HEAD: Normocephalic. EYES: No scleral icterus. No injection or drainage. NECK: Supple, trachea midline. No JVD or lymphadenopathy. CARDIOVASCULAR: Regular rate and rhythm without murmurs, gallops, or rubs. RESPIRATORY: Breath sounds equal bilaterally. No accessory muscle use. GASTROINTESTINAL: Abdomen soft, non-tender, nondistended. MUSCULOSKELETAL: No cyanosis, or edema. BACK: Nontender without obvious deformity. No CVA tenderness. Procedures None A/P Problem List: (1) Community acquired bacterial pneumonia ICD Code: J15.9 - Unspecified bacterial pneumonia (2) Alcohol intoxication ICD Code: F10.929 - Alcohol use, unspecified with intoxication, unspecified (3) Alcohol abuse ICD Code: F10.10 - Alcohol abuse, uncomplicated (4) Severe sepsis ICD Code: A41.9 - Sepsis, unspecified organism; R65.20 - Severe sepsis without septic shock (5) Acute metabolic encephalopathy ICD Code: G93.41 - Metabolic encephalopathy (6) Toxic metabolic encephalopathy ICD Code: G92 - Toxic encephalopathy (7) Lactic acidosis ICD Code: E87.2 - Acidosis Assessment and Plan 72-year-old man with Severe sepsis: Resolved Continue with IV antibiotics including Zosyn and vancomycin Aspiration pneumonia Chest x-ray with minimal left base parenchymal opacity Continue with Zosyn pending culture report Sputum culture pending, Legionella and pneumococcal urinary antigens negative DuoNeb as needed Maintain oxygen saturation above 92% Metabolic encephalopathy-improving Head CT noted and reviewed by me without any intracranial abnormality EEG pending Treat lactic acidosis Lactic acidosis From above Continue with IV fluid hydration, IV antibiotics Monitor lactic acid History of seizure disorder? EEG pending Ativan as needed Alcohol abuse/intoxication Monitor for withdrawal signs and symptoms Continue with CIWA protocol, rally pack, Librium as needed Je Castillo MD October 22, 2017 10:33
[2017-10-22] MEDS ORDERED: AUGM875T3 PO (11:31)
[2017-10-22] MEDS ORDERED: VITA100T54 PO (11:31)
--- NOTE | 2017-10-22 11:35 | HHI.DS ---
Discharge Summary Admission Date October 20, 2017 at 14:14 Discharge Date: October 22, 2017 Admitting Diagnosis PNEUMONIA (1) Community acquired bacterial pneumonia ICD Code: J15.9 - Unspecified bacterial pneumonia (2) Alcohol intoxication ICD Code: F10.929 - Alcohol use, unspecified with intoxication, unspecified (3) Alcohol abuse ICD Code: F10.10 - Alcohol abuse, uncomplicated (4) Severe sepsis ICD Code: A41.9 - Sepsis, unspecified organism; R65.20 - Severe sepsis without septic shock (5) Acute metabolic encephalopathy ICD Code: G93.41 - Metabolic encephalopathy (6) Toxic metabolic encephalopathy ICD Code: G92 - Toxic encephalopathy (7) Lactic acidosis ICD Code: E87.2 - Acidosis Procedures None Brief History - From Admission 72 years old brought to the ED for evaluation of AMS, although during my exam patient appears alert however he was unable to provide any history due to confusion and agitation, therefore the history is obtained through chart review below: "This 72-year-old male is brought by paramedics. This gentleman apparently has a history of alcohol abuse. Family told the paramedics that he was not acting himself. He apparently has a history of dementia though he seems more confused than usual. He has a history of seizures. In the past he has been on Dilantin. At this time we are unable to ascertain whether he has been taking any medication. We are not aware of any recent seizure. The patient is not able to provide any useful information. 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." CBC/BMP: 10/22/17 0551 10/22/17 0551 Significant Findings Laboratory Tests Test 10/20/17 13:00 10/20/17 13:25 10/20/17 14:00 10/20/17 14:12 Red Blood Count 3.62 MIL/MM3 (4.50-5.90) Hematocrit 38.1 % (39.0-51.0) Mean Corpuscular Volume 105.2 FL (80.0-100.0) Mean Corpuscular Hemoglobin 36.4 PG (27.0-34.0) Mean Platelet Volume 6.9 FL (7.0-11.0) Neutrophils % (Manual) 72 % (16-70) Band Neutrophils % 11 % (0-6) Random Glucose 110 MG/DL (74-106) Aspartate Amino Transf (AST/SGOT) 85 U/L (15-37) Total Bilirubin 1.1 MG/DL (0.2-1.0) Phenytoin (Dilantin) Level LESS THAN 0.4 MCG/ML Ethyl Alcohol Level 111 MG/DL (0-5) Lactic Acid Level 6.8 mmol/L (0.4-2.0) Ammonia 36 MCMOL/L (11-32) Activated Partial Thromboplast Time 19.3 SEC (24.3-30.1) Urine Ketones 40 mg/dL (NEG) Urine Occult Blood SMALL (NEG) Urine Hyaline Casts 10- /lpf (RARE) Test 10/20/17 16:35 10/21/17 05:52 10/21/17 15:40 10/22/17 05:51 Lactic Acid Level 6.6 mmol/L (0.4-2.0) 3.2 mmol/L (0.4-2.0) 2.1 mmol/L (0.4-2.0) Red Blood Count 3.33 MIL/MM3 (4.50-5.90) 3.31 MIL/MM3 (4.50-5.90) Hemoglobin 11.9 GM/DL (13.0-17.0) 12.0 GM/DL (13.0-17.0) Hematocrit 35.6 % (39.0-51.0) 35.2 % (39.0-51.0) Mean Corpuscular Volume 106.8 FL (80.0-100.0) 106.5 FL (80.0-100.0) Mean Corpuscular Hemoglobin 35.7 PG (27.0-34.0) 36.4 PG (27.0-34.0) Mean Platelet Volume 6.4 FL (7.0-11.0) 6.4 FL (7.0-11.0) Monocytes (%) (Auto) 15.7 % (0.0-8.0) 9.8 % (0.0-8.0) Basophils (%) (Auto) 2.4 % (0.0-2.0) 3.6 % (0.0-2.0) Blood Urea Nitrogen 6 MG/DL (7-18) 6 MG/DL (7-18) Random Glucose 108 MG/DL (74-106) 121 MG/DL (74-106) Total Protein 6.1 GM/DL (6.4-8.2) 6.2 GM/DL (6.4-8.2) Albumin 2.7 GM/DL (3.4-5.0) 2.8 GM/DL (3.4-5.0) Calcium Level 8.4 MG/DL (8.5-10.1) Aspartate Amino Transf (AST/SGOT) 63 U/L (15-37) 64 U/L (15-37) Total Bilirubin 2.1 MG/DL (0.2-1.0) 2.1 MG/DL (0.2-1.0) Neutrophils (%) (Auto) 73.7 % (16.0-70.0) Lymphocytes # (Auto) 0.5 TH/MM3 (1.0-4.8) Imaging Last Impressions Head CT 10/20/17 1313 Signed Impressions: CONCLUSION: No acute intracranial process Chest X-Ray 10/20/17 1311 Signed Impressions: CONCLUSION: Minimal left base parenchymal opacity. PE at Discharge GENERAL: NAD SKIN: Warm and dry. HEAD: Normocephalic. EYES: No scleral icterus. No injection or drainage. NECK: Supple, trachea midline. No JVD or lymphadenopathy. CARDIOVASCULAR: Regular rate and rhythm without murmurs, gallops, or rubs. RESPIRATORY: Breath sounds equal bilaterally. No accessory muscle use. GASTROINTESTINAL: Abdomen soft, non-tender, nondistended. MUSCULOSKELETAL: No cyanosis, or edema. BACK: Nontender without obvious deformity. No CVA tenderness. Hospital Course While in hospital, patient was treated for: Severe sepsis: Resolved Treated with with IV antibiotics including Zosyn and vancomycin Aspiration pneumonia Chest x-ray with minimal left base parenchymal opacity Treated with Zosyn and patient will be discharged home on Augmentin 7 days DuoNeb as needed Maintain oxygen saturation above 92% Metabolic encephalopathy-improved Head CT noted and reviewed by me without any intracranial abnormality Treat lactic acidosis Lactic acidosis From above Continue with IV fluid hydration, IV antibiotics Monitor lactic acid History of seizure disorder? EEG pending Ativan as needed Alcohol abuse/intoxication Monitor for withdrawal signs and symptoms Treated with CIWA protocol, rally pack, Librium as needed Pt Condition on Discharge: Good Discharge Disposition: Discharge Home Discharge Time: <= 30 minutes Discharge Instructions Follow up Referrals: PCP Follow-up - 1 Week New Medications: Amoxicillin-Clavulanate (Augmentin) 875-125 Mg Tab 1 TAB PO BID for Infection, #14 TAB 0 Refills Bedside Commode (Bedside Commode) 1 Mis Mis EA .XX DIRECTED, #1 Thiamine (Vitamin B-1) 100 Mg Tab 100 MG PO DAILY for Nutritional Supplement, #30 TAB 0 Refills Walker with Front Wheels (Walker with Front Wheels) 1 Mis Mis EA .XX DIRECTED, #1 0 Refills Wheelchair (Wheelchair) 1 Mis Mis EA .XX DIRECTED, #1 0 Refills Je Castillo MD October 22, 2017 11:35
[2017-10-22] MEDS ORDERED: WALKER WHEELS/F1 MIS (13:56)
[2017-10-22] MEDS ORDERED: BEDSIDE COMMODE1 MI1 (13:56)
[2017-10-22] MEDS ORDERED: WHEEMIS3 (13:56)
== END 2017-10-22 14:25 | disposition home or self-care (01) | DRG 871 ==
LOC: PHED 12:17 → PHEDA 14:14 → PHICU 20:22
PROVIDERS: ADMIT Hospitalist; ATTEND Hospitalist
DX: A41.9 Sepsis, unspecified organism (principal); G92 Toxic encephalopathy; J69.0 Pneumonitis due to inhalation of food and vomit; E87.2 Acidosis; R65.20 Severe sepsis without septic shock; G93.89 Other specified disorders of brain; F10.129 Alcohol abuse with intoxication, unspecified; F03.90 Unspecified dementia, unspecified severity, without behavioral disturbance, psychotic disturbance, mood disturbance, and anxiety; G40.909 Epilepsy, unspecified, not intractable, without status epilepticus; Y90.5 Blood alcohol level of 100-119 mg/100 ml
CPT/HCPCS: 70450; 71045; 76937; 80053; 80185; 80307; 81001; 82140; 83605; 85007; 85025; 85027; 85610; 85730; 87040; 87449; 95819; 96365; J0696; J1630; J2060; J2543; J3370; J3411; J7030; J7050